=== PATIENT | female | born 1965 | race Caucasian/White ===

== ENCOUNTER 2019-09-06 09:58 | Emergency (ER) | payer MEDICARE, MEDICAID ==
[~2019-09-06] VITALS: Ht 165.1 cm; Wt 77.0 kg
[~2019-09-06 09:58] MED LIST: ABIL5 PO; ATOR10TA PO; LEVO25TA7 PO; METF-414 PO; insulin
[2019-09-06] MEDS ORDERED: ACETAMINOPHEN 325MG TABLET PO ONE (11:15)
[2019-09-06 11:47] VITALS: BP 118/83
== END 2019-09-06 11:50 | disposition home or self-care (01) ==
LOC: ER 09:58
DX: E11.65 Type 2 diabetes mellitus with hyperglycemia (principal); Z03.818 Encounter for observation for suspected exposure to other biological agents ruled out; E78.00 Pure hypercholesterolemia, unspecified; F20.9 Schizophrenia, unspecified; G20 Parkinson's disease; E89.0 Postprocedural hypothyroidism; Z79.899 Other long term (current) drug therapy; Z79.4 Long term (current) use of insulin
CPT/HCPCS: 71045; 82962; 93005; 99285; C9803; U0003

== ENCOUNTER 2020-09-18 21:42 | Emergency (ER) | payer MEDICARE, MEDICAID ==
[~2020-09-18] VITALS: Ht 162.6 cm; Wt 70.5 kg
[2020-09-18] MEDS ORDERED: ONDANSETRON HCL 4MG/2ML INJ IV STA (23:04)
[2020-09-18] MEDS ORDERED: MORPHINE SULFATE 4 MG/ML CPJ (NOT FOR IM USE) IV STA (23:04)
[2020-09-18 23:33] LABS: HEMATOCRIT. 36.1 % (36.0-48.0); MEAN CORPUSCULAR HEMOGLOBIN 28.1 pg (28.0-32.0); MEAN CORPUSCULAR VOLUME 84.8 fL (81.0-99.0); MEAN PLATELET VOLUME 8.5 fl (7.4-10.4); PLATELET 337 x1000/uL (130-400); RED BLOOD CELL COUNT 4.26 mill/uL (4.2-5.4); RED CELL DISTRIBUTION WIDTH 14.7 % (11.6-14.6)
[2020-09-18 23:35] LABS: CHLORIDE 101 mEq/L (98-107)
[2020-09-19 01:20] LABS: CLARITY URINE CLEAR (CLEAR); COLOR URINE YELLOW (YELLOW); PROTEIN URINE NEGATIVE (NEGATIVE); SPECIFIC GRAVITY URINE 1.027 (1.005-1.030)
[2020-09-19 01:21] LABS: KETONES URINE TRACE (NEGATIVE); LEUKOCYTE ESTERASE URINE TRACE (NEGATIVE); NITRITE URINE NEGATIVE (NEGATIVE); OCCULT BLOOD URINE NEGATIVE (NEGATIVE); UROBILINOGEN URINE 0.2 E.U./dL (0.2-1.0)
[2020-09-19] MEDS ORDERED: IOHEXOL-300 100 ML BOTTLE ONE (02:18)
[2020-09-19] MEDS ORDERED: SULF1TAB48 MT (02:44)
[2020-09-19] MEDS ORDERED: CEFTRIAXONE 1 G PREMIX 50 ML IV ONE (02:45)
[2020-09-19] MEDS ORDERED: SODIUM CHLORIDE 0.9% 1,000 ML IV ONE (02:45)
[2020-09-19 02:50] LABS: PLATELET ESTIMATE NORMAL
[2020-09-19 04:00] VITALS: BP 154/71
== END 2020-09-19 04:27 | disposition home or self-care (01) ==
LOC: ER 21:42
DX: N30.90 Cystitis, unspecified without hematuria (principal); E11.9 Type 2 diabetes mellitus without complications; F20.9 Schizophrenia, unspecified; E03.9 Hypothyroidism, unspecified; Z79.899 Other long term (current) drug therapy
CPT/HCPCS: 36415; 74177; 80053; 81003; 85025; 96365; 96366; 96375; 99285; J0696; J2270; J2405; J7030; Q9967